=== PATIENT | female | born 1975 | race Caucasian/White ===

== ENCOUNTER → 2016-08-19 | Outpatient (CLI) | payer MEDICARE, OTHER ==
[~2016-08-19] MED LIST: ACETAMINOPHEN PO; ACETAMINOPHEN650 M1 PO; ALENDRONATE SOD70 MG PO; ARTHRICREME85 GM; ASPIRINEC PO; ATARAX PO; BACTRIM DS TABL1 TA1 PO; BENZOYL PEROXIDE TP; BISACODYL10 MG/SUPP PR; CALCIUM + D 6001 TA1 PO; CALCIUM CITRATE1 T15 PO; CENTRUM PO; DEBROX OTIC DRO15 ML AU; DEBROX15 M1; DEBROX15 M1 OT; DIASTAT ACUDIAL1 KIT; DIASTAT10 MG PR; DIASTAT2.5 MG/KIT; DOSTINEX PO; FOSAMAX PO; IMMUNOTHERAPY SUBQ; KCL PO; KLOR-CON PO; LIDOCAINE HC35.44 GM TP; MICRO-K PO; MIRALAX119 GM; MIRALAX255 GM PO; MONTELUKAST SOD10 MG PO; NITROFURANTOIN100 M3 PO; NOVOLIN R; NOVOLIN R100 UNITS/; NOVOLIN R100 UNITS/ INJ; PAMPRIN MULTI-S1 TAB PO; PATANOL5 ML OP; PROBIOTIC1 EACH PO; SENNA PO; SENNA S TABLET1 TAB PO; SENNA-LAX8.6 M1 PO; SIMVASTATIN10 MG PO; SINGULAIR PO; THERAGRAN-M PO; TOPAMAX PO; UTI-STAT L3875 MG/30 PO; VIMPAT PO; VITAMIN D 4001 UDTAB PO; VITAMIN D400 UNI1 PO; ZYRTEC10 M2 PO; ZZ-IMMUNOTHERAPY; [UNRECOGNIZED DRUG - CODE]; [UNRECOGNIZED DRUG - OTHER]; [UNRECOGNIZED DRUG - OTHER] TP; [UNRECOGNIZED DRUG - REMARK]
== END | disposition home or self-care (01) ==
LOC: CSSDAY 10:07
DX: M81.8 Other osteoporosis without current pathological fracture (principal); Z79.899 Other long term (current) drug therapy
CPT/HCPCS: 96372; J0897

== ENCOUNTER → 2016-08-24 | Outpatient (CLI) | payer MEDICARE, OTHER ==
--- NOTE | ~2016-08-24 | US77 ---
[facility] A Service of [facility] RADIOLOGY TEXT RESULTS PATIENT: LAMAR CUENCA LOCATION: [facility] : 73 UNIT #: [id number] AGE: [address]: Tanner Vargas MD SEX: F ORDER DR: [id number] [facility] [address] [place], [place] [address] [id number] O MR#: [id number] Acc #: [id number] NAME: LAMAR CUENCA. : 1975 SEX: F STUDY DATE/TIME: 08/24/2016 14:30 UNIT: [facility] ROOM: STUDY DESCRIPTION: US Kidney Bilateral Complete Attending Physician: Tanner Vargas M.D. Referring Physician: Loi Wan Sr., M.D. Ordering Physician: Tanner Vargas M.D. Primary Care Physician: Adama Simmons M.D. MEDICAL IMAGING REPORT This report is preliminary unless electronic signature is present EXAM Bilateral renal ultrasound INDICATIONS 41-year-old female. Evaluate for kidney stones. Hydronephrosis. Comparison with 08/30/2015. FINDINGS The kidneys are not well visualized sonographically. The right kidney measured as 6.8 cm in length. The left kidney is better visualized and measured at 7.8 cm in length. There is no obvious hydronephrosis. There is a linear echogenic focus in the lower pole left kidney which is consistent with a kidney stone better demonstrated on the CT from last year. No other echogenic kidney stones are seen. No obvious hydronephrosis. IMPRESSION Limited evaluation. The right kidney is poorly visualized and is small. This was better seen on the CT from last year. The left kidney demonstrates a single linear echogenic focus consistent with lower pole kidney stone which was seen on the CT from last year. No other kidney stones are visualized. No hydronephrosis. Dictated by... Lucien Fu M.D. THIS IS AN ELECTRONICALLY VERIFIED REPORT Lucien Fu M.D. at 08/27/2016 9:00 AM [employer]AR[employer] TD: 08/25/2016 08:30 JOB #: [id number] [facility] A Service of [facility] RADIOLOGY TEXT RESULTS PATIENT: LAMAR CUENCA LOCATION: [facility] #: [id number] : [birth year] UNIT #: [id number] AGE: [address]: Tanner Vargas MD SEX: F ORDER DR: MEDICAL IMAGING REPORT Page 1 of 1 COPY
== END | disposition home or self-care (01) ==
LOC: CGUS 13:12
DX: N13.30 Unspecified hydronephrosis (principal); N20.0 Calculus of kidney
CPT/HCPCS: 76770